=== PATIENT | male | born 1950 | race Caucasian/White ===

== ENCOUNTER → 2019-12-25 09:06 | Outpatient (BNVA) | payer MEDICARE, SELFPAY | PROVIDERS: Family Provider Nurse Practitioner Family; PCP Nurse Practitioner Family; Visit Provider Family Medicine | DX: N20.0 Calculus of kidney (principal); N20.1 Calculus of ureter | CPT/HCPCS: 81000 ==

== ENCOUNTER 2019-12-27 08:45 | Outpatient (CLI) | payer MEDICARE, SELFPAY ==
--- NOTE | 2019-12-27 08:56 | CT_ITS ---
WS: [id number] CT ABDOMEN PELVIS TECHNIQUE: Noncontrast CT of the abdomen and pelvis with coronal and sagittal reformatted images. CLINICAL INFORMATION: Look for renal stone on left COMPARISON: CT July 10, 2015 DLP: 1186.[address] scans at [facility] use at least one of these dose optimization techniques: automat ed exposure control; mA and/or kV adjustment per patient size (includes targeted exams where dose is matched to clinical indication); or iterative reconstruction. FINDINGS: Obstructing left UVJ calculus at the bladder orifice measuring 5 mm. Mild left hydronephrosis and ure terectasis. Right ureter is decompressed. No hydronephrosis in right kidney. Moderate esophageal hiatal hernia. Noncontrast liver is normal. Noncontrast gallbladder is normal. No rmal noncontrast spleen. Noncontrast pancreas is unremarkable. Lung bases are well aerated. Normal ca liber abdominal aorta. Mild aortic calcification. Sigmoid diverticulosis. No evidence of acute divert iculitis. Enlarged prostate measuring 5.1 x 3.7 CM. Tiny fat-containing umbilical hernia. CT/CT kidney stone [id number] IMPRESSION: 1. 5 mm left UVJ calculus at the bladder orifice with mild left hydronephrosis and ureterectasis. 2. Normal right kidney and ureter. 3. Moderate esophageal hiatal hernia. 4. Sigmoid diverticulosis. No evidence of acute diverticulitis. 5. Enlarged prostate measuring 5.1 x 3.7 CM. Recommend correlation PSA.
== END 2019-12-27 08:46 | disposition home or self-care (01) ==
LOC: RADWPI 08:54
PROVIDERS: Family Provider Nurse Practitioner Family; PCP Family Medicine; Visit Provider Family Medicine
DX: N20.0 Calculus of kidney (principal); N20.1 Calculus of ureter; K44.9 Diaphragmatic hernia without obstruction or gangrene; K57.30 Diverticulosis of large intestine without perforation or abscess without bleeding; N40.0 Benign prostatic hyperplasia without lower urinary tract symptoms
CPT/HCPCS: 74176

== ENCOUNTER 2019-12-28 10:15 | Outpatient (CLI) | payer MEDICARE, SELFPAY ==
--- NOTE | 2019-12-28 10:30 | XR_ITS ---
WS: [id number] ABDOMEN KUB CLINICAL INFORMATION: Renal/ureteral calculi. COMPARISON: July 24, 2015 FINDINGS: 5 mm left UVJ calculus seen on CT not well visualized. Otherwise no visualized renal parenchymal or u reteral calculi. XR/XR KUB [id number] Impression: 5 mm left UVJ calculus seen on CT not well visualized
== END 2019-12-28 10:16 | disposition home or self-care (01) ==
LOC: RADWPI 10:18
PROVIDERS: Family Provider Nurse Practitioner Family; PCP Family Medicine; Visit Provider Urology
DX: N20.1 Calculus of ureter (principal)
CPT/HCPCS: 74018; 81001

== ENCOUNTER 2020-02-07 09:06 | Outpatient (CLI) | payer MEDICARE, SELFPAY ==
--- NOTE | 2020-02-07 09:00 | XR_ITS ---
WS: [id number] ABDOMEN 1 VIEW(S) HISTORY: left ureteral calculus COMPARISON: None available. Normal bowel gas pattern. No suspicious calcifications or masses. No bone abnormality. XR/XR KUB [id number] IMPRESSION: Previously described distal LEFT UV junction calcification not identified radio graphically or may have passed.
== END 2020-02-07 09:07 | disposition home or self-care (01) ==
LOC: RAD 09:09
PROVIDERS: PCP Family Medicine; Visit Provider Urology
DX: N20.1 Calculus of ureter (principal)
CPT/HCPCS: 74018; 81001

== ENCOUNTER 2021-02-05 08:30 | Outpatient (CLI) | payer MEDICARE, SELFPAY ==
--- NOTE | 2021-02-05 08:30 | XR_ITS ---
WS: [id number] Exam: XR KUB [id number] Date/Time of Exam: 02/05/2021 8:47 AM Reason For Exam: N20.0 - Calculus of kidney Comparison 02/07/2020. No bowel obstruction or free air. Moderate amount retained stool throughout the colon. No calcificati ons seen in the region of the kidneys. Osseous structures are intact. XR/XR KUB [id number] IMPRESSION: 1. No acute abdominal finding. No calcifications seen in the region of the kidn eys. 2. Constipation.
== END 2021-02-05 08:31 | disposition home or self-care (01) ==
PROVIDERS: PCP Family Medicine; Visit Provider Urology
DX: N20.0 Calculus of kidney (principal); K59.00 Constipation, unspecified
CPT/HCPCS: 74018; 81003

== ENCOUNTER 2022-07-16 12:37 | Outpatient (CLI) | payer MEDICARE, SELFPAY ==
--- NOTE | 2022-07-16 12:47 | XR_ITS ---
WS: [id number] KUB, AP view, 07/16/2022 Clinical Data: Renal Stones Comparison: KUB, 02/05/2021 Findings: No abnormal intraabdominal masses or calcifications are seen. There is no dilatated small bowel or ev idence of obstruction. There is a large amount of fecal material throughout the colon. XR/XR KUB [id number] Impression: Large amount of fecal material in the colon.
== END 2022-07-16 12:38 | disposition home or self-care (01) ==
PROVIDERS: Visit Provider Urology
DX: N20.0 Calculus of kidney (principal)
CPT/HCPCS: 74018; 81003; 99213

== ENCOUNTER → 2024-09-26 09:25 | Outpatient (BNVA) | payer MEDICARE, OTHER, SELFPAY | PROVIDERS: Visit Provider Nurse Practitioner | DX: R06.00 Dyspnea, unspecified (principal); I10 Essential (primary) hypertension; H61.23 Impacted cerumen, bilateral | CPT/HCPCS: 80053; 80061; 83880; 84443; 85025 ==

== ENCOUNTER 2024-10-24 04:48 | Emergency (ER) | payer MEDICARE, OTHER, SELFPAY ==
[2024-10-24] VITALS (64 sets, daily range): BP systolic 83–176; BP diastolic 59–98; PULSE 63–80; RESP 0–19; TEMP 37; O2SAT 93–100; BMI 29.5
--- NOTE | 2024-10-24 04:59 | CTR_ITS ---
PROCEDURE INFORMATION: Exam: CT Neck With Contrast Exam date and time: 10/24/2024 6:01 AM Age: 74 years old Clinical indication: Dysphagia / difficulty swallowing and mass, lump, or swelling in neck; Right; Additional info: Right submandibular swelling TECHNIQUE: Imaging protocol: Computed tomography of the neck with contrast. Radiation optimization: All CT scans at this facility use at least one of these dose optimization techniques: automated exposure control; mA and/or kV adjustment per patient size (includes targeted exams where dose is matched to clinical indication); or iterative reconstruction. Contrast material: OMNI 350; Contrast volume: 100 ml; Contrast route: INTRAVENOUS (IV); COMPARISON: No relevant prior studies available. RADIATION DOSE METRICS: Total DLP (mGy-cm): 225.11 FINDINGS: Paranasal sinuses: Air-fluid levels within the bilateral maxillary sinuses. Thickening of the mucosal surfaces of the maxillary sinuses. Bilateral maxillary sinus mucous retention cysts. Salivary glands: Edematous and enlarged submandibular gland. Oral cavity: Inflammatory stranding within the right lateral floor of the mouth which extends into the glottis and supraglottis. Pharynx: Right vallecula is effaced. Larynx: The epiglottis does not appear to be inflamed at this time. There is swelling of the right lateral wall of the larynx, mild left lateral displacement of the aerodigestive tract secondary to inflammatory change. Thyroid: Normal. No enlarged or calcified nodules. Trachea: Visualized trachea is unremarkable. Lungs: Unremarkable as visualized. Lymph nodes: Reactive local lymph nodes of the right neck and right jaw. Bones/joints: Fat stranding is noted within the right neck and jaw, worse at the right lateral aspect adjacent the inflamed right submandibular gland. Diffuse degenerative changes of the visualized osseous structures. Notable disc osteophyte complex at C5-C6 where there is mild effacement of the thecal sac. Scattered [id number] neural foraminal narrowing particularly at C3 through C5. Soft tissues: No retropharyngeal edema/fluid. Other findings: Mild amount of free fluid is seen anterior to the right carotid space. CT/CT neck w con* [id number] IMPRESSION: 1. Right submandibular sialoadenitis without obstruction of the duct. 2. Significant inflammatory changes adjacent the right submandibular gland involving the jaw, face, deep spaces of the neck causing mass-effect upon the glottis and supraglottis as highlighted above, this is concerning for early Ronal's angina. At this point in time respiratory tract is patent. 3. Findings which can be seen in acute on chronic sinusitis.
--- NOTE | 2024-10-24 05:13 | ED_ITS ---
Documented by User: Mary Ann Mckinley MD 10/24/24 05:15 HPI - URI/Sore Throat 2 General: Chief Complaint: Upper Respiratory Infection Stated Complaint: Throat Swollen Time Seen by Provider: 10/24/24 04:55 History of Present Illness: 74-year-old man who presents emergency r oom with swelling in his right submandibular gland. He has had a cough and congestion for the last couple of days. This came up over the last 24 hours. He says it hurts to swallow. He says he would be scared to try solids because he has some difficulty swallowing liquids. No respiratory compromise. No known fevers. No chest pain. No nausea or vomiting. No altered mental status. Related Data Previous Rx's ?Medication ?Instructions ?Recorded amlodipine 5 mg tablet 5 mg PO DAILY #90 tabs 09/26 losartan 50 mg tablet 50 mg PO DAILY #90 tabs 09/13 01/05 Allergies Allergy/AdvReac Type Severity Reaction Status Date / Time No Known Allergies Allergy Verified 10/24/24 04:56 Review of Systems 2 Narrative: Constitutional symptoms: Negative except as documented in HPI. Skin symptoms: Negative except as documented in HPI. Eye symptoms: Negative except as documented in HPI. ENMT symptoms: Negative except as documented in HPI. Respiratory symptoms: Negative except as documented in HPI. Cardiovascular symptoms: Negative except as documented in HPI. Gastrointestinal symptoms: Negative except as documented in HPI. Genitourinary symptoms: Negative except as documented in HPI. Musculoskeletal symptoms: Negative except as documented in HPI. Neurologic symptoms: Negative except as documented in HPI. Psychiatric symptoms: Negative except as documented in HPI. Endocrine symptoms: Negative except as documented in HPI. PFSH ED 2 PFSH: Medical History Renal stones Hypertension History of kidney stones Surgical History History of tonsillectomy H/O lithotripsy Family History Mother , 99 No problems noted. Father , 85 CAD (coronary artery disease) Hypertension Social History Smoking and tobacco/nicotine status: never used tobacco/nicotine Alcohol intake: never Substance/Drug Use: never Marital status: Current occupational status: retired Physical Exam 2 Narrative: EXAM NARRATIVE: General: Alert, no acute distress. Skin: Warm, dry. Head: Normocephalic, atraumatic. Neck: Supple, trachea midline. Swelling of the right submandibular gland. This is solid feeling. Nonfluctuant. Eye: Extraocular movements are intact. Ears, nose, mouth and throat: mucosa moist. Cardiovascular: Regular, Normal peripheral perfusion. Respiratory: Lungs are clear to auscultation, respirations are non-labored, breath sounds are equal, Symmetrical chest wall expansion. Gastrointestinal: Soft, Nontender, Non distended Musculoskeletal: Normal ROM, no deformity. Neurological: Alert and oriented, No focal neurological deficit observed. Psychiatric: Cooperative, appropriate mood & affect. Course 2 Vital Signs: Vital signs: Vital Signs Temperature 98.6 F 10/24/24 04:53 Pulse Rate 69 10/24/24 11:00 Respiratory Rate 14 10/24/24 11:00 Blood Pressure 111/74 10/24/24 11:00 Pulse Oximetry 99 10/24/24 11:00 Oxygen Delivery Me thod Mechanical Ventil ation 10/24/24 07:40 Fraction of Inspir ed Oxygen 40 10/24/24 07:57 MDM - URI/Sore Throat Medical Decision Making Patient care transitioned Dr. Cunningham at shift change. Lab Data 10/24/24 05:23 10/24/24 05:[address] 10/24/24 04:59 IMPRESSION: 1. Right submandibular sialoadenitis without obstruction of the duct. 2. Significant inflammatory changes adjacent the right submandibular gland involving the jaw, face, deep spaces of the neck causing mass-effect upon the glottis and supraglottis as highlighted above, this is concerning for early Ronal's angina. At this point in time respiratory tract is patent. 3. Findings which can be seen in acute on chronic sinusitis. ADDENDUM: 10/24/24 0832 ADDENDUM: The above findings and impression were discussed with the wedding transportation driver on 10/24/2024 at 6:44 a.m. Chest X-Ray 10/24/24 07:34 IMPRESSION: 1. Medical devices as above. 2. No acute cardiopulmonary findings. Laboratory Results WBC 8.14 10^3/uL (3.29-11.43) 10/24/24 05:23 RBC 5.15 10^6/uL (3.85-5.65) 10/24/24 05:23 Hgb 13.90 g/dL (11.27-16.99) 10/24/24 05:23 Hct 44.4 % (37-53) 10/24/24 05:23 MCV 86.2 fl (82-101) 10/24/24 05:23 MCH 27.0 pg (27-33) 10/24/24 05:23 MCHC 31.3 g/dL (30-55) 10/24/24 05:23 RDW 14.9 % (12.1-15.1) 10/24/24 05:23 Plt Count 273 10^3/cmm (157-399) 10/24/24 05:23 MPV 10.0 fL (7.4-10.4) 10/24/24 05:23 Neut % (Auto) 77.1 % 10/24/24 05:23 Lymph % (Auto) 9.8 % 10/24/24 05:23 Lamar % (Auto) 10.0 % 10/24/24 05:23 Eos % (Auto) 2.1 % 10/24/24 05:23 Baso % (Auto) 0.5 % 10/24/24 05:23 Neut # (Auto) 6.28 10^3/uL (1.8-7.7) 10/24/24 05:23 Lymph # (Auto) 0.8 10^3/uL (0.8-4.8) 10/24/24 05:23 Lamar # (Auto) 0.8 10^3/uL (0.2-0.9) 10/24/24 05:23 Eos # (Auto) 0.2 10^3/uL (0.0-0.8) 10/24/24 05:23 Baso # (Auto) 0.0 10^3/uL (0.0-0.1) 10/24/24 05:23 Nucleated RBC % (auto) 0 % 10/24/24 05:23 Nucleated RBCs # 0.0 /100WBC 10/24/24 05:23 Specimen Type Arterial 10/24/24 07:38 Sample Site Radial, left 10/24/24 07:38 ABG pH 7.40 (7.35-7.45) 10/24/24 07:38 ABG pCO2 39.9 mmHg (35-45) 10/24/24 07:38 ABG pO2 498.0 mmHg (80.0-100.0) H 10/24/24 07:38 ABG HCO3 24.8 mmol/L (22-26) 10/24/24 07:38 ABG O2 Saturation > 99.1 10/24/24 07:38 ABG Base Excess 0.0 mmol/L (-2.0-2.0) 10/24/24 07:38 Doe Test Pos 10/24/24 07:38 A-a O2 Gradient Not Reportable 10/24/24 07:38 Hematocrit 43.3 % (42-52) 10/24/24 07:38 Hgb O2 Saturation 98.6 % (95-100) 10/24/24 07:38 Carboxyhemoglobin 0.6 %THgb (0.4-20.1) 10/24/24 07:38 Methemoglobin 1.0 % (0.4-1.5) 10/24/24 07:38 Total Hemoglobin 14.1 g/dL (14-18) 10/24/24 07:38 Sodium 138.0 mmol/L (131-143) 10/24/24 07:38 Potassium 3.9 mmol/L (3.5-5.0) 10/24/24 07:38 Glucose 98.0 mg/dL (70-115) 10/24/24 07:38 Ionized Calcium 1.2 mmol/L (1.1-1.4) 10/24/24 07:38 O2 Delivery Device Vent 10/24/24 07:38 Tidal Volume 0.50 10/24/24 07:38 PEEP 8.0 cmH20 10/24/24 07:38 Harness And Bag Inspector ID [id number] 10/24/24 07:38 Sodium 137 mmol/L (136-145) 10/24/24 05:23 Potassium 4.1 mmol/L (3.5-5.1) 10/24/24 05:23 Chloride 103 mmol/L (98-107) 10/24/24 05:23 Carbon Dioxide 21 mmol/L (22-29) L 10/24/24 05:23 Anion Gap 17.1 (5-19) 10/24/24 05:23 BUN 19 mg/dL (8-23) 10/24/24 05:23 Creatinine 0.9 mg/dL (0.7-1.2) 10/24/24 05:23 GFR Calculation Not Reportable 10/24/24 05:23 Glucose 96 mg/dL (65-115) 10/24/24 05:23 Calculated Osmolality 286 mOsm/kg (285-295) 10/24/24 05:23 Calcium 8.6 mg/dL (8.5-10.5) 10/24/24 05:23 Total Bilirubin 0.5 mg/dL (0.15-1.2) 10/24/24 05:23 AST 19 U/L (0-40) 10/24/24 05:23 ALT 18 U/L (0-41) 10/24/24 05:23 Alkaline Phosphatase 113 U/L (40-130) 10/24/24 05:23 Total Protein 6.4 g/dL (6.6-8.7) L 10/24/24 05:23 Albumin 3.2 g/dL (3.5-5.2) L 10/24/24 05:23 Globulin 3.2 g/dL (1.3-4.6) 10/24/24 05:23 Coronavirus (PCR) Negative (Negative) 10/24/24 05:00 Influenza A (PCR) Negative (Negative) 10/24/24 05:00 Influenza Type B (PCR) Negative (Negative) 10/24/24 05:00 RSV (PCR) Negative (Negative) 10/24/24 05:00 Discharge Plan Discharge Patient Disposition: Admitted As Inpatient Clinical Impression: Ronal's angina, Acute sialoadenitis Condition: Stable Prescriptions: No Action amlodipine 5 mg tablet 5 mg PO DAILY Qty: 90 3RF losartan 50 mg tablet 50 mg PO DAILY Qty: 90 3RF Patient Instructions: Opioid Safety, Pain Management Print Language: Tamazight Sign Out Sign Out Data: Patient Sign Out occurred on 10/24/24 at 06:36. Patient's care was discussed, and care was transferred from Mary Ann Mckinley MD to Jacobo Cunningham DO. Coding Level of Care Code ED Web Content Producer for Chg Fwd Documented by User: Jacobo Cunningham DO 10/24/24 11:32 HPI - URI/Sore Throat 2 General: Chief Complaint: Upper Respiratory Infection Stated Complaint: Throat Swollen Time Seen by Provider: 10/24/24 04:55 History of Present Illness: Associated symptoms: Deny abdominal pain, chills, chest pain or fever(s) Related Data Previous Rx's ?Medication ?Instructions ?Recorded amlodipine 5 mg tablet 5 mg PO DAILY #90 tabs 09/26 losartan 50 mg tablet 50 mg PO DAILY #90 tabs 09/13 01/05 Allergies Allergy/AdvReac Type Severity Reaction Status Date / Time No Known Allergies Allergy Verified 10/24/24 04:56 Review of Systems 2 Const: Denies: fever(s) or chills ENMT: Reports: odynophagia and hoarseness Card: Denies: chest pain Resp: Denies: dyspnea GI: Denies: abdominal pain : Denies: dysuria, urinary frequency or urinary urgency Musc: Denies: neck pain or back pain Skin/Breast: Denies: rash PFSH ED 2 PFSH: Medical History Renal stones Hypertension History of kidney stones Surgical History History of tonsillectomy H/O lithotripsy Family History Mother , 99 No problems noted. Father , 85 CAD (coronary artery disease) Hypertension Social History Smoking and tobacco/nicotine status: never used tobacco/nicotine Alcohol intake: never Substance/Drug Use: never Marital status: Current occupational status: retired Physical Exam 2 Const: GENERAL APPEARANCE: cooperative ORIENTATION/CONSCIOUSNESS: Yes awake, Yes oriented to person, Yes oriented to place and Yes oriented to time HENMT: COMMON NORMALS: normocephalic, atraumatic and hearing grossly normal bilaterally HEAD & SCALP: normocephalic and atraumatic Neck/C-Spine: OTHER: Right-sided submandibular swelling obvious swelling externally. Posterior pharyngeal wall there is some swelling around the uvula no exudate. Patient has tenesmus garbled voice difficulty swallowing saliva Resp: COMMON NORMALS: normal respiratory effort, No retractions, No use of accessory muscles and clear to auscultation bilaterally AUSCULTATION: clear to auscultation bilaterally Cardio: COMMON NORMALS: regular rate, regular rhythm and No murmurs present (Cardio) RATE: regular rate RHYTHM: regular rhythm GI: COMMON NORMALS: Soft to palpation and No hepatosplenomegaly present A USCULTATION: Yes normoactive bowel sounds PALPATION: Yes Soft to palpation, No Tenderness to palpation present (GI), No Guarding due to palpation present (GI) and Yes No hepatosplenomegaly present Extremity: COMMON NORMALS: normal to inspection, capillary refill normal, no clubbing, cyanosis or edema, no calf tenderness and no pedal edema Neuro: SENSORIUM/ORIENTATION: Yes oriented to person, Yes oriented to place and Yes oriented to time Skin: COMMON NORMALS: no rashes or lesions noted GENERAL SKIN EXAM: no rashes or lesions noted Procedures Intubation Time out performed: Yes sedative: Etomidate Mg Given: 30 Mg Given: 100 Laryngoscope: fiber optic video scope ET Tube Size: 8 ET Tube Uncuffed: No Tube Secured Depth (cm): 24 Tube Secured Location: teeth Tube Placement Confirmation: visualized tube passing through cords, equal breath sounds bilaterally, no breath sounds over epigastrium and confirmation by capnometry Patient Tolerated Procedure: well Intubation Complications: none Additional Comments: Significant amount of supraglottic swelling noted distortion of the larynx from right to left from the swelling Course 2 Vital Signs: Vital signs: Vital Signs Temperature 98.6 F 10/24/24 04:53 Pulse Rate 69 10/24/24 11:00 Respiratory Rate 14 10/24/24 11:00 Blood Pressure 111/74 10/24/24 11:00 Pulse Oximetry 99 10/24/24 11:00 Oxygen Delivery Me thod Mechanical Ventil ation 10/24/24 07:40 Fraction of Inspir ed Oxygen 40 10/24/24 07:57 MDM - URI/Sore Throat Medical Decision Making Patient care transitioned Dr. Cunningham at shift change. Care assumed at change of shift the patient has significant amount of neck swallowing he has garbled voice and reports difficulty swallowing. CT reviewed and discussed with radiologist there is significant amount of submandibular space looks to be an early onset Ludewig's angina likely emanating from the right sublingual gland no abscess present and is affecting the airway somewhat on on the radiograph and additionally on physical exam. Discussed with the patient and recommend elective intubation before he has further swelling and difficulty with swallowing and airway he agreed. Intubation done without significant difficulty. Discussed with ENT and with haz tech at [facility] they will accept on transfer. Patient cultured and started on IV antibiotics Lab Data 10/24/24 05:23 10/24/24 05:[address] 10/24/24 04:59 IMPRESSION: 1. Right submandibular sialoadenitis without obstruction of the duct. 2. Significant inflammatory changes adjacent the right submandibular gland involving the jaw, face, deep spaces of the neck causing mass-effect upon the glottis and supraglottis as highlighted above, this is concerning for early Ronal's angina. At this point in time respiratory tract is patent. 3. Findings which can be seen in acute on chronic sinusitis. ADDENDUM: 10/24/24 0832 ADDENDUM: The above findings and impression were discussed with the wedding transportation driver on 10/24/2024 at 6:44 a.m. Chest X-Ray 10/24/24 07:34 IMPRESSION: 1. Medical devices as above. 2. No acute cardiopulmonary findings. Laboratory Results WBC 8.14 10^3/uL (3.29-11.43) 10/24/24 05:23 RBC 5.15 10^6/uL (3.85-5.65) 10/24/24 05:23 Hgb 13.90 g/dL (11.27-16.99) 10/24/24 05:23 Hct 44.4 % (37-53) 10/24/24 05:23 MCV 86.2 fl (82-101) 10/24/24 05:23 MCH 27.0 pg (27-33) 10/24/24 05:23 MCHC 31.3 g/dL (30-55) 10/24/24 05:23 RDW 14.9 % (12.1-15.1) 10/24/24 05:23 Plt Count 273 10^3/cmm (157-399) 10/24/24 05:23 MPV 10.0 fL (7.4-10.4) 10/24/24 05:23 Neut % (Auto) 77.1 % 10/24/24 05:23 Lymph % (Auto) 9.8 % 10/24/24 05:23 Lamar % (Auto) 10.0 % 10/24/24 05:23 Eos % (Auto) 2.1 % 10/24/24 05:23 Baso % (Auto) 0.5 % 10/24/24 05:23 Neut # (Auto) 6.28 10^3/uL (1.8-7.7) 10/24/24 05:23 Lymph # (Auto) 0.8 10^3/uL (0.8-4.8) 10/24/24 05:23 Lamar # (Auto) 0.8 10^3/uL (0.2-0.9) 10/24/24 05:23 Eos # (Auto) 0.2 10^3/uL (0.0-0.8) 10/24/24 05:23 Baso # (Auto) 0.0 10^3/uL (0.0-0.1) 10/24/24 05:23 Nucleated RBC % (auto) 0 % 10/24/24 05:23 Nucleated RBCs # 0.0 /100WBC 10/24/24 05:23 Specimen Type Arterial 10/24/24 07:38 Sample Site Radial, left 10/24/24 07:38 ABG pH 7.40 (7.35-7.45) 10/24/24 07:38 ABG pCO2 39.9 mmHg (35-45) 10/24/24 07:38 ABG pO2 498.0 mmHg (80.0-100.0) H 10/24/24 07:38 ABG HCO3 24.8 mmol/L (22-26) 10/24/24 07:38 ABG O2 Saturation > 99.1 10/24/24 07:38 ABG Base Excess 0.0 mmol/L (-2.0-2.0) 10/24/24 07:38 Doe Test Pos 10/24/24 07:38 A-a O2 Gradient Not Reportable 10/24/24 07:38 Hematocrit 43.3 % (42-52) 10/24/24 07:38 Hgb O2 Saturation 98.6 % (95-100) 10/24/24 07:38 Carboxyhemoglobin 0.6 %THgb (0.4-20.1) 10/24/24 07:38 Methemoglobin 1.0 % (0.4-1.5) 10/24/24 07:38 Total Hemoglobin 14.1 g/dL (14-18) 10/24/24 07:38 Sodium 138.0 mmol/L (131-143) 10/24/24 07:38 Potassium 3.9 mmol/L (3.5-5.0) 10/24/24 07:38 Glucose 98.0 mg/dL (70-115) 10/24/24 07:38 Ionized Calcium 1.2 mmol/L (1.1-1.4) 10/24/24 07:38 O2 Delivery Device Vent 10/24/24 07:38 Tidal Volume 0.50 10/24/24 07:38 PEEP 8.0 cmH20 10/24/24 07:38 Harness And Bag Inspector ID [id number] 10/24/24 07:38 Sodium 137 mmol/L (136-145) 10/24/24 05:23 Potassium 4.1 mmol/L (3.5-5.1) 10/24/24 05:23 Chloride 103 mmol/L (98-107) 10/24/24 05:23 Carbon Dioxide 21 mmol/L (22-29) L 10/24/24 05:23 Anion Gap 17.1 (5-19) 10/24/24 05:23 BUN 19 mg/dL (8-23) 10/24/24 05:23 Creatinine 0.9 mg/dL (0.7-1.2) 10/24/24 05:23 GFR Calculation Not Reportable 10/24/24 05:23 Glucose 96 mg/dL (65-115) 10/24/24 05:23 Calculated Osmolality 286 mOsm/kg (285-295) 10/24/24 05:23 Calcium 8.6 mg/dL (8.5-10.5) 10/24/24 05:23 Total Bilirubin 0.5 mg/dL (0.15-1.2) 10/24/24 05:23 AST 19 U/L (0-40) 10/24/24 05:23 ALT 18 U/L (0-41) 10/24/24 05:23 Alkaline Phosphatase 113 U/L (40-130) 10/24/24 05:23 Total Protein 6.4 g/dL (6.6-8.7) L 10/24/24 05:23 Albumin 3.2 g/dL (3.5-5.2) L 10/24/24 05:23 Globulin 3.2 g/dL (1.3-4.6) 10/24/24 05:23 Coronavirus (PCR) Negative (Negative) 10/24/24 05:00 Influenza A (PCR) Negative (Negative) 10/24/24 05:00 Influenza Type B (PCR) Negative (Negative) 10/24/24 05:00 RSV (PCR) Negative (Negative) 10/24/24 05:00 All radiology interpretation(s) finalized by discharge Discharge Plan Discharge Patient Disposition: Admitted As Inpatient Clinical Impression: Ronal's angina, Acute sialoadenitis Condition: Stable Prescriptions: No Action amlodipine 5 mg tablet 5 mg PO DAILY Qty: 90 3RF losartan 50 mg tablet 50 mg PO DAILY Qty: 90 3RF Patient Instructions: Opioid Safety, Pain Management Print Language: Tamazight Sign Out Sign Out Data: Patient Sign Out occurred on 10/24/24 at 06:36. Patient's care was discussed, and care was transferred from Mary Ann Mckinley MD to Jacobo Cunningham DO. Coding Level of Care Code ED Web Content Producer for Ant Guillen
[2024-10-24 05:28] LABS: Basophils % 0.5 %; Eosinophils # 0.2 10^3/uL (0.0-0.8); Eosinophils % 2.1 %; Hematocrit 44.4 % (37-53); Lymphocytes # 0.8 10^3/uL (0.8-4.8); Lymphocytes % 9.8 %; Mean Corpuscular HGB Conc 31.3 g/dL (30-55); Mean Corpuscular Volume 86.2 fl (82-101); Monocytes # 0.8 10^3/uL (0.2-0.9); Neutrophils # 6.28 10^3/uL (1.8-7.7); Neutrophils % 77.1 %; Nucleated Red Blood Cells % 0 %; Platelet Count 273 10^3/cmm (157-399); Red Blood Count 5.15 10^6/uL (3.85-5.65); Red Cell Distribution Width 14.9 % (12.1-15.1); White Blood Count 8.14 10^3/uL (3.29-11.43)
[2024-10-24 05:51] LABS: Alanine Aminotransferase 18 U/L (0-41); Albumin Level 3.2 g/dL (3.5-5.2); Alkaline Phosphatase 113 U/L (40-130); Anion Gap 17.1 (5-19); Aspartate Amino Transferase 19 U/L (0-40); Blood Urea Nitrogen 19 mg/dL (8-23); Calcium 8.6 mg/dL (8.5-10.5); Carbon Dioxide 21 mmol/L (22-29); Chloride 103 mmol/L (98-107); Creatinine Clr Calc Pharmacy 81.3794; Globulin 3.2 g/dL (1.3-4.6); Glucose 96 mg/dL (65-115); Osmolality Calculated 286 mOsm/kg (285-295); Potassium 4.1 mmol/L (3.5-5.1); Sodium 137 mmol/L (136-145); Total Bilirubin 0.5 mg/dL (0.15-1.2); Total Protein 6.4 g/dL (6.6-8.7)
[2024-10-24 05:51] LABS: Influenza A NEGATIVE (Negative); Influenza B NEGATIVE (Negative); Respiratory Syncytial Virus Ce NEGATIVE (Negative); SARS-CoV-2 PCR NEGATIVE (Negative)
[2024-10-24] MEDS: iohexol 350 mg/mL 500 mL Btl (per mL) IV (06:04)
--- NOTE | 2024-10-24 07:07 | PC.PHAR ---
Pts' current list shows 2 medications recently filled at [facility]. It is unknown whether pt took am meds today.
[2024-10-24] MEDS: succinylcholine 20 mg/mL SDV 10mL 100 MG IVP (07:08)
[2024-10-24] MEDS: etomidate 2 mg/mL INJ SDV 10 mL 30 MG IVP (07:08)
[2024-10-24] MEDS: propofol 1,000 MG/100 ML INJ 16.33 MG IV ×2 (07:10→09:53)
--- NOTE | 2024-10-24 07:34 | XRR_ITS ---
PROCEDURE INFORMATION: Exam: XR Chest Exam date and time: 10/24/2024 7:13 AM Age: 74 years old Clinical indication: Device placement; Ett placement (vent status); Additional info: Tube placement TECHNIQUE: Imaging protocol: Radiologic exam of the chest. Views: 1 view. COMPARISON: CT neck w con* [id number] 10/24/2024 6:01 AM FINDINGS: Tubes, catheters and devices: Patient is intubated, endotracheal tube projects 3.4 cm from the kamron. Enteric tube traverses midline, catheter tip and side fenestration is not within the field of view. Appears subdiaphragmatic. Lungs: Unremarkable. No consolidation. Pleural spaces: Unremarkable. No pleural effusion. No pneumothorax. Heart/Mediastinum: Unremarkable. No cardiomegaly. Bones/joints: Unremarkable. XR/XR chest 1V portable [id number] IMPRESSION: 1. Medical devices as above. 2. No acute cardiopulmonary findings.
[2024-10-24] MEDS: midazolam hcl 100 MG/100 ML BAG IV (07:40)
--- NOTE | 2024-10-24 07:42 | PC.NURSE ---
10 MG ETOMIDATE AND 100 MG SUCC WASTED WITH BISHOP HEATH.
--- NOTE | 2024-10-24 07:46 | PC.NURSE ---
100 MG PROP PUSH ORDERED FOR HEAVIER SEDATION AND GIVEN BY RAHEEM AT 0715. 100 MG PROP PUSH ORDERED FOR HEAVIER SEDATION AND GIVEN BY RAHEEM AT 0723.
[2024-10-24 07:53] LABS: ABG PCO2 39.9 mmHg (35-45); Arterial Blood Gas Hematocrit 43.3 % (42-52); Blood Gas Allen Test Pos; Blood Gas Operator Identificat GD; Blood Gas Sample Site Radial, left; Blood Gas Sample Type Arterial; Carboxyhemoglobin 0.6 %THgb (0.4-20.1); HCO3 ABG 24.8 mmol/L (22-26); HGB O2 Sat 98.6 % (95-100); Ionized Calcium Level - ABG 1.2 mmol/L (1.1-1.4); Oxygen Device VENT; Oxygen Saturation ABG > 99.1; Potassium Level - ABG 3.9 mmol/L (3.5-5.0); Total Hemoglobin 14.1 g/dL (14-18)
--- NOTE | 2024-10-24 08:20 | PC.NURSE ---
MADERA PLACED AND OG TUBE PLACED, VERIFIED WITH XR.
[2024-10-24] MEDS: piperacillin-tazobactam 3.375 GM in sodium chloride 0.9% (plus) 50 ML IV (08:22)
--- NOTE | 2024-10-24 08:25 | PC.NURSE ---
PATIENT COMFORTABLE ON SEDATION, PATIENT SUCTIONED.
[2024-10-24] MEDS: VANCOMYCIN ADD-Vantage 1,000 MG in 0.9% NaCl ADD-Vantage 250 ML 250 MG IV (09:05)
--- NOTE | 2024-10-24 10:00 | PC.NURSE ---
PATIENT 2ND BOTTLE OF PROPOFOL STARTED. PATIENT STABLE WITH NO SIGNS OF DISTRESS.
[2024-10-24] MEDS: sodium chloride 0.9% 1,000 ML 999 ML IV (10:16)
--- NOTE | 2024-10-24 11:35 | PC.NURSE ---
SUCTION PROVIDED, PATIENT STILL COMFORTABLE IN BED WITHOUT SIGNS OF DISTRESS. PATIENT 1 L BOLUS SLOWED DUE TO PATIENT BP BEING STABLE. PROVIDER [facility]R[place].
--- NOTE | 2024-10-24 17:44 | PC.NURSE ---
PATIENT DISCHARGED WITH [facility]. PATIENT PROPOFOL CONTINUES TO RUN AT 30 MCG/KG AND VERSED AT 4 MG. PATIENT REMAINS SEDATED AND INTUBATED. NORMAL SALINE STOPPED RUNNING, APPROXIMATELY 500 ML INTAKE.
== END 2024-10-24 17:47 | disposition admitted as inpatient to this hospital (09) ==
PROVIDERS: Emergency Medicine; Emergency Provider Family Medicine
DX: K12.2 Cellulitis and abscess of mouth (principal); K11.21 Acute sialoadenitis; I10 Essential (primary) hypertension; Z11.52 Encounter for screening for COVID-19
CPT/HCPCS: 31500; 36415; 36600; 70491; 71045; 80051; 80053; 82330; 82805; 85025; 87040; 87070; 87205; 87637; 94002; 94799; 96365; 96366; 96367; 99291; J0330; J2250; J2543; J2704; J3370; J3490; J7030; J7050